=== PATIENT | female | born 1975 | race Caucasian/White ===

== ENCOUNTER 2023-03-22 10:51 | Emergency (ER) | payer SELFPAY ==
[2023-03-22] VITALS (10 sets, daily range): BP systolic 139–171; BP diastolic 64–113; PULSE 37–83; RESP 16–20; TEMP 36.1–36.6; O2SAT 95–100; BMI 25.8
--- NOTE | 2023-03-22 10:54 | CT_ITS ---
FINAL REPORT TECHNIQUE: Postcontrast axial images through the abdomen and pelvis were performed. This study was performed with techniques to keep radiation doses as low as reasonably achievable, (ALARA). Individualized dose reduction techniques using automated exposure control or adjustment of mA and/or kV according to the patient's size were employed. CLINICAL HISTORY: abdominal pain, right side FINDINGS: Abdomen: The lung bases are clear. The liver is normal in size and attenuation. The gallbladder is present. The spleen is unremarkable. The adrenals are normal. The pancreas is unremarkable. There is a left renal cyst. The aorta is normal in caliber. No free fluid or adenopathy is identified. No findings for mechanical bowel obstruction are identified. Pelvis: The appendix is normal. The cervix is enlarged with heterogeneous appearance. The ovaries are unremarkable. The urinary bladder is unremarkable. No free fluid, free air, abscess or adenopathy is identified. IMPRESSION: Abnormal appearance of the cervix with enlargement. Recommend direct visualization and Pap smear. No bowel obstruction or inflammatory changes. Reviewed, Interpreted and Dictated by Helena Ventura MD Transcribed by Corrie Morales Authenticated and [facility]
--- NOTE | 2023-03-22 11:13 | HMH.EDGENADL ---
Discharge Plan Disposition Patient Disposition: Home, Self-Care Prescriptions Prescriptions: New ondansetron 4 mg Tablet,Disintegrating 4 mg PO Q8H PRN (Reason: Nausea) Qty: 15 0RF naproxen 500 mg tablet 500 mg PO BID PRN (Reason: pain) Qty: 20 0RF Activity Restrictions/Add. Instructions Additional Instructions/Restrictions: Follow-up with your manager agriculture for cervical inflammation. Return to the emergency department for worsening pain vomiting or any other concerns within 8 hours Clinical Impressions Clinical Impression: Acute flank pain Instructions Patient Instructions: DI for Acute Abdominal Pain Discharge ED Provider: Milton Pinedo General Adult HPI General Chief complaint: Abdominal Pain Stated complaint: abd pain Time Seen by Provider: 03/22/23 11:00 Mode of Arrival: EMS Source of Information: Patient Limitations: No Limitations Description of Symptoms (Recalled from ER Triage Doc. by RN): Pt reports R sided abd pain. Pt reports pain ongoning for approx 5 weeks, states has been to [place] was diagnosed with PID. Pt reports sudden onset of worsening pain today. Reports n/v/d that began lastnight, pt denies fevers. Pt reports only abd surgery is hysterectomy in ary of this year. History of Present Illness HPI narrative: 47-year-old female presents with right-sided flank pain. She has history of hysterectomy a few months ago says the pain got worse today. Also has had nausea vomiting and diarrhea. No fevers. Pain is ongoing since December but got worse overnight. Not worse with eating. No chest pain or shortness of air. No dysuria hematuria discharge Related Data Previous Rx's Medication Instructions Recorded naproxen 500 mg tablet 500 mg PO BID PRN pain #20 tabs 03/22/23 ondansetron 4 mg disintegrating 4 mg PO Q8H PRN Nausea #15 tabs 03/22/23 tablet Allergies Allergy/AdvReac Type Severity Reaction Status Date / Time codeine Allergy Nausea Verified 03/22/23 11:04 [facility] Disclaimer: The information contained in this section may have been updated after the patient was seen, as this information can be updated by other users. Social History Smoking Status: Unknown if ever smoked alcohol intake: never current occupational status: unemployed Travel in the last 8 weeks: Inside the [place] ROS Obtained: Yes All systems reviewed & no additional complaints except as documented Constitutional Constitutional: Denies fever(s) and Denies headache(s) Eyes Eyes: Denies dry eyes ENT Ears, Nose, Mouth, and Throat: Denies dizziness and Denies headache(s) Cardiovascular Cardiovascular: Denies dyspnea Respiratory Respiratory: Denies dyspnea Gastrointestinal Gastrointestingal: Denies constipation Genitourinary Female Genitourinary: Denies hematuria Musculoskeletal Musculoskeletal: Denies joint stiffness Integumentary/Breasts Skin/Breast: Denies dry skin and Denies rash Neurologic Neurologic: Denies dizziness and Denies headache(s) Endocrine Endocrine: Denies flushing Hematologic/Lymphatic Henatologic/Lymphatic: Denies easy bleeding Allergic/Immunologic Allergic/Immunologic: Denies urticaria Physical Exam General General appearance: alert and in no apparent distress Eye Eye exam: Present PERRL and EOMI ENT ENT exam: Present normal exam and normal oropharynx Neck Neck exam: Present normal inspection Chest Chest inspection: Present symmetric chest wall rise Respiratory Respiratory exam: Present normal lung sounds bilaterally; Absent respiratory distress Cardiovascular Cardiovascular exam: Present regular rate and normal rhythm Abdominal Exam Abdominal exam: Present soft and tenderness (Tenderness to right mid abdomen); Absent distention, guarding, rebound, Balderas's sign or tenderness at McBurney's Point Back Exam Back exam: Present normal inspection Neurological Exam Neurological exam: Present alert and oriented X3 Psychiatric Psychiatric exam
--- NOTE | 2023-03-22 11:44 | ECG_ITS ---
APPROVED REPORT Exam: Resting ECG HR:37 bpm ECG Measurements Heart Rate 37 AXES OR 173 P 9 QRSd 86 QRS 35 QT 506 T 10 QTc 421 Conclusion SINUS BRADYCARDIA CRITICAL TEST RESULT UNCONFIRMED REPORT Electronically signed by : Ramses Mac MD 03/23/2023 15:02:39
--- NOTE | 2023-03-22 11:54 | PC.NURSE ---
notified ER pt HR is 36 at this time, resting in bed
[2023-03-22 11:59] LABS: Basophils % 0.3 % (0.1-2.0); Eosinophils # 0.1 K/mm3 (0.0-0.4); Eosinophils % 1.1 % (0.1-12.0); Hematocrit 39.5 % (37.0-47.0); Hemoglobin 13.1 g/dL (12.2-16.2); Lymphocytes # 1.2 K/mm3 (0.7-4.5); Lymphocytes % 12.6 % (10-50); Mean Corpuscular Volume 87.9 fl (81-99); Mean Platelet Volume 8.9 fl (7.4-10.4); Monocytes # 0.3 K/mm3 (0.1-1.0); Neutrophils # 8.1 K/mm3 (1.8-7.8); Neutrophils % 82.9 % (37.0-80.0); Platelet Count 221 K/mm3 (142-424); Red Cell Distribution Width 13.7 % (11.5-17.5); White Blood Count 9.8 K/mm3 (4.8-10.8)
--- NOTE | 2023-03-22 12:02 | PC.NURSE ---
ER MD states to give pt zofran as ordered see if that improves pt HR r/t pt have heaving with vomiting. States Atropine ordered will see if zofran helps improve pt if not will give atropine. will monitor pt and update ER MD
--- NOTE | 2023-03-22 12:03 | PC.NURSE ---
daughter Jillian's phone number [phone] requests to be called when results are back with pt, pt gave verbal consent to speak with daughter over the phone about her results.
[2023-03-22 12:04] LABS: Chloride 101 mmol/L (98-107)
[2023-03-22 12:05] LABS: Potassium 3.5 mmoL/L (3.5-5.1); Sodium 137 mmol/L (136-145)
[2023-03-22 12:07] LABS: Alanine Aminotransferase 28 U/L (12-78); Alkaline Phosphatase 62 U/L (38-126); Aspartate Amino Transferase 38 U/L (14-36); Bilirubin,Total 0.4 mg/dl (0.2-1.3); Blood Urea Nitrogen 9 mg/dl (7-17); Creatinine Clearance Estimated 130 mL/min (50-200); Estimated Glomerular Filt Rate 106 ml/min (>60); GFR (African American) 129 ML/MIN (>60)
[2023-03-22 12:08] LABS: Albumin Level 3.6 g/dl (3.5-5.0); Albumin/Globulin Ratio 1.3 (1.1-1.8); Anion Gap 14.5 mEq/L (5-15); Calcium 8.7 mg/dl (8.4-10.2); Carbon Dioxide 25 mmol/L (22.0-30.0); Globulin 2.7 g/dL (1.3-3.2); Glucose 120 mg/dl (74-100); Lipase 30 U/L (23-300); Total Protein,Serum 6.3 g/dl (6.3-8.2)
--- NOTE | 2023-03-22 12:16 | PC.NURSE ---
HR 79 at this time after 0.5 mg of Atropine per IV at 1214 per ER verbal order to do 0.5 mg initially.
[2023-03-22 12:19] LABS: HCG Qualitative, Serum Negative (Negative)
--- NOTE | 2023-03-22 12:19 | PC.NURSE ---
rad staff notified pt labs are resulted for ct scan
--- NOTE | 2023-03-22 12:27 | PC.NURSE ---
pt to Ct via stretcher
--- NOTE | 2023-03-22 13:57 | PC.NURSE ---
pt up to restroom
== END 2023-03-22 14:11 | disposition home or self-care (01) ==
PROVIDERS: Emergency Provider Emergency Medicine
DX: R11.2 Nausea with vomiting, unspecified (principal); R10.9 Unspecified abdominal pain; R19.7 Diarrhea, unspecified
CPT/HCPCS: 74177; 80053; 83690; 84703; 85025; 93005; 96361; 96374; 96375; 96376; 99285; J2405; Q9967